=== PATIENT | male | born 1955 | race Caucasian/White ===

== ENCOUNTER → 2024-09-03 11:17 | Outpatient (BNVA) | payer SELFPAY | PROVIDERS: PCP Nurse Practitioner Family; Visit Provider Nurse Practitioner Family | DX: Z76.89 Persons encountering health services in other specified circumstances (principal); G47.00 Insomnia, unspecified; Z86.19 Personal history of other infectious and parasitic diseases; Z87.891 Personal history of nicotine dependence | CPT/HCPCS: 80053; 85025; G0103 ==